=== PATIENT | female | born 1940 | race Caucasian/White ===

== ENCOUNTER → 2016-05-15 | Day surgery (SDC) | payer OTHER, MEDICARE ==
[~2016-05-15] VITALS: Ht 157.5 cm; Wt 70.8 kg
[~2016-05-15] MED LIST: AMLODIPINE BESY10 M1 PO; COZAAR50 M1 PO; LEVOTHYROXINE125 MCG PO
--- NOTE | 2016-05-15 10:43 | Operative Report ---
Operative/Inv Procedure Report Surgery Date: 05/15/16 Name of Procedure: Cystoscopy and TURBT Pre-Operative Diagnosis: Recurrent bladder tumor Post-Operative Diagnosis: same Estimated Blood Loss: scant Surgeon/[employer]: ROD Wall MD Anesthesia: general endotracheal tube Drains: 20 fr giron Specimens: Bladder tumor chips and urine culture Complications: none Condition: stable Operative Indication: This patient has had a transurethral resection of bladder tumor in the past. She was treated with intravesical BCG. Recent office cystoscopy shows findings consistent with recurrent bladder tumor. Operative/Procedure Note Note: The patient was taken to the cystoscopy room identified. She is placed in supine position on the cystoscopy table in a timeout was executed appropriately with the patient awake. Gen. anesthesia was induced via an endotracheal tube. She was then placed in the dorsal lithotomy position and prepped and draped in usual fashion for cystoscopy. Surgical pause was executed appropriately. The 22 American cystoscope sheath was placed into the bladder and cystoscopy performed. There was about a 4 cm superficial appearing bladder tumor just lateral to the right ureteral orifice. There was a smaller, 1-1/2 cm bladder tumor, on the left lateral wall. The remainder the bladder appeared normal. The right and left ureteral orifices were normal in position and location. At this point the bladder was left full. 26 American resectoscope sheath was placed into the bladder using the obturator. The working element was inserted. Both bladder tumors were resected completely. The Sallie syringe was used to irrigate all bladder tumor chips from the bladder. The base of each bladder tumor was then fulgurated. No bleeding was noted at this time. Ureteral orifices were preserved. The bladder was left full and a 20 American two-way Giron catheter inserted. She tolerated the procedure well and as completion was taken to recovery room in stable condition Findings: Superficial appearing bladder tumors on the right and left lateral bladder coleman. The tumor on the right lateral wall was the bigger of the 2 Discharge Disposition: PACU CC: ROD SOSA MD
== END ==
LOC: STS 04:54
DX: C67.8 Malignant neoplasm of overlapping sites of bladder (principal); R31.9 Hematuria, unspecified; I10 Essential (primary) hypertension; E03.9 Hypothyroidism, unspecified; E78.5 Hyperlipidemia, unspecified; Z85.118 Personal history of other malignant neoplasm of bronchus and lung; M31.6 Other giant cell arteritis; E78.00 Pure hypercholesterolemia, unspecified
CPT/HCPCS: 87086; 88307; C9399; J0131; J0690; J2250